=== PATIENT | female | born 2000 | race Hispanic/Latino ===

== ENCOUNTER 2020-10-23 22:16 | Emergency (ER) | payer SELFPAY ==
[2020-10-24] MEDS ORDERED: METOCLOPRAMIDE 10 MG/2 ML INJ IV ONE (00:23)
[2020-10-24] MEDS ORDERED: SODIUM CHLORIDE 0.9% 1000 ML 1,000 ML IV ONE (00:23)
--- NOTE | 2020-10-24 00:28 | Event Note ---
ED Screening Note Date of service: 10/24/20 Time: 00:25 ED Screening Note: Patient brought in for nausea and vomiting. Patient states that she is currently at a detox program at [facility]. She is currently in the detox program for Percocet and Xanax. She states that she has been having nausea and vomiting since she entered the program. They have been giving her Zofran IM but it has not been helping and so she was sent here for better control of her nausea and vomiting. In addition to the vomiting she has been having diffuse abdominal pain and intermittent diarrhea. She is currently on her menstrual cycle. This initial assessment/diagnostic orders/clinical plan/treatment(s) is/are subject to change based on patients health status, clinical progression and re- assessment by fellow clinical providers in the ED. Further treatment and workup at subsequent clinical providers discretion. Patient/guardian urged not to elope from the ED as their condition may be serious if not clinically assessed and managed. Initial orders include: CBC, CMP, urinalysis, hCG, IV fluids
[2020-10-24 00:56] LABS: Basophils % (Auto) 0.4 % (0.0-1.8); Eosinophils # (Auto) 0.1 K/mm3 (0.0-0.4); Eosinophils % (Auto) 0.7 % (0.0-4.3); Hematocrit 38.3 % (30.3-42.9); Hemoglobin 12.6 gm/dl (10.1-14.3); Lymphocytes # (Auto) 1.9 K/mm3 (1.2-5.4); Mean Corpuscular HGB Conc 33 % (30-34); Mean Corpuscular Volume 86 fl (79-97); Monocytes # (Auto) 0.6 K/mm3 (0.0-0.8); Monocytes % (Auto) 7.3 % (0.0-7.3); Platelet Count 239 K/mm3 (140-440); Red Blood Count 4.44 M/mm3 (3.65-5.03); Red Cell Distribution Width 16.3 % (13.2-15.2)
[2020-10-24 01:03] LABS: Alanine Aminotransferase 7 units/L (7-56); Albumin 4.6 g/dL (3.9-5); Blood Urea Nitrogen 6 mg/dL (7-17); Calcium 9.7 mg/dL (8.4-10.2); Hemolysis Index 5
[2020-10-24 01:05] LABS: BUN/Creatinine Ratio 15
--- NOTE | 2020-10-24 01:13 | Emergency Department Report ---
ED Abdominal Pain HPI - General Chief Complaint: Abdominal Pain Stated Complaint: NAUSEA PUI?: No Time Seen by Provider: 10/24/20 00:55 Source: patient Mode of arrival: Ambulatory Limitations: No Limitations - History of Present Illness Initial Comments: Patient is a 20-year-old female that presents emergency room with complaints of nausea vomiting and abdominal pain. Patient states her symptoms been going on for 2 days. Patient states she is currently in a detox for rehab from Xanax and Percocets. Patient states she is actively withdrawing. Patient states that she is receiving Ativan and Zofran at [facility]. Patient states is not helping. Patient states they are using Ativan for her Xanax withdrawal. Patient states she is not been able to hold anything down for at least 2 to 3 days. Patient states she cannot even tolerate ice chips. Patient states her abdominal pain is a 10 out of 10. Patient states that generalized pain. Patient states the pain is better with rest and worse with movement. Patient states the pain is also worse with vomiting. Patient states she was seen in another hospital yesterday was given fluids and Zofran sent back to rehab. Patient also complained of near syncope. Patient states she did not lose consciousness. Patient states she just felt lightheaded. Patient denies recent travel. Patient denies recent international travel. Patient denies exposure to the novel coronavirus. Patient denies sick contacts. Patient denies fever and chills. Patient denies cough. Patient denies diarrhea. Patient denies coming in contact with anybody with symptoms of the novel coronavirus. MD Complaint: abdominal pain -: Sudden, days(s) Location: diffuse Radiation: none Migration to: no migration Severity: severe Severity scale (0 -10): 10 Quality: stabbing Consistency: constant Improves With: rest Worsens With: vomiting, movement Associated Symptoms: nausea, vomiting. denies: diarrhea, fever, chills, constipation, dysuria, hematemesis, hematochezia, melena, hematuria, syncope - Related Data LMP (females 10-50): last week Previous Rx's Medication Instructions Recorded Last Taken Type Promethazine [Phenergan] 25 mg KS Q6HR PRN #20 supp.rect 10/24/20 Unknown Rx Allergies Allergy/AdvReac Type Severity Reaction Status Date / Time No Known Allergies Allergy Unverified 10/23/20 22:50 ED Review of Systems ROS: Stated complaint: NAUSEA Other details as noted in HPI Constitutional: denies: chills, fever Eyes: denies: eye pain, eye discharge, vision change ENT: denies: ear pain, throat pain Respiratory: denies: cough, shortness of breath, wheezing Cardiovascular: denies: chest pain, palpitations Endocrine: no symptoms reported Gastrointestinal: abdominal pain, nausea, vomiting. denies: diarrhea Genitourinary: denies: urgency, dysuria, discharge Musculoskeletal: denies: back pain, joint swelling, arthralgia Skin: denies: rash, lesions Neurological: denies: headache, weakness, paresthesias Psychiatric: denies: anxiety, depression Hematological/Lymphatic: denies: easy bleeding, easy bruising ED Past Medical Hx - Past Medical History Previous Medical History?: Yes Additional medical history: Substance abuse - Surgical History Past Surgical History?: Yes Additional Surgical History: tonsils and adenoids - Family History Family history: no significant - Social History Smoking Status: Never Smoker Substance Use Type: Marijuana, Other - Medications Home Medications: Home Medications Medication Instructions Recorded Confirmed Last Taken Type Promethazine [Phenergan] 25 mg KS Q6HR PRN #20 supp.rect 10/24/20 Unknown Rx ED Physical Exam - General Limitations: No Limitations General appearance: alert, in no apparent distress - Head Head exam: Present: atraumatic, normocephalic - Eye Eye exam: Present: normal appearance, PERRL Pupils: Present: normal accommodation - ENT ENT exam: Present: mucous membranes dry - Neck Neck exam: Present: normal inspection - Respiratory Respiratory exam: Present: normal lung sounds bilaterally. Absent: respiratory distress - Cardiovascular Cardiovascular Exam: Present: regular rate, normal rhythm. Absent: systolic murmur, diastolic murmur, rubs, gallop - GI/Abdominal GI/Abdominal exam: Present: soft, normal bowel sounds - Extremities Exam Extremities exam: Present: normal inspection - Back Exam Back exam: Present: normal inspection - Neurological Exam Neurological exam: Present: alert, oriented X3, CN II-XII intact, normal gait - Psychiatric Psychiatric exam: Present: normal affect, normal mood - Skin Skin exam: Present: warm, dry, intact, normal color. Absent: rash ED Course Vital Signs 10/23/20 22:52 Temperature 98.5 F Pulse Rate 99 H Respiratory 17 Rate Blood Pressure 133/80 O2 Sat by Pulse 100 Oximetry - Reevaluation(s) Reevaluation #1: She states her nausea has resolved. Patient is states she still having abdom inal pain. 10/24/20 02:31 Reevaluation #2: Patient states her nausea is better. Patient states she still having better. Patient CT is pending. 10/24/20 04:31 Reevaluation #3: Patient states feeling better. Patient tolerated ice chips. Patient requested a dose of her Phenergan suppository prior to leaving so that she does not get nauseated before she gets back to [facility]. Patient will be given a Phenergan suppository KS. I discussed all results and clinical findings with patient. I discussed plan of care with patient. Patient agrees with plan of care. Patient is stable for discharge. Patient will be discharged home. Patient given discharge instructions. Patient voiced understanding of discharge instructions. 10/24/20 05:04 ED Medical Decision Making - Lab Data Result diagrams: 10/24/20 00:26 10/24/20 00:26 - Radiology Data Radiology results: report reviewed CT ABDOMEN AND PELVIS WITH CONTRAST INDICATION / CLINICAL INFORMATION: n/v. abd pain. TECHNIQUE: Axial CT images were obtained through the abdomen and pelvis after 100 mL Omnipaque [address] scans at this location are performed using CT dose reduction for ALARA by means of automated exposure control. COMPARISON: None available. FINDINGS: LOWER CHEST: Mild left lung base atelectasis. LIVER: No significant abnormality. GALLBLADDER: Subtle, noncalcified densities in the gallbladder could represent sludge balls versus noncalcified stones. No wall thickening or inflammation. BILE DUCTS: Mildly prominent common bile duct measuring 9 mm in diameter with possible small noncalcified stones. PANCREAS: No significant abnormality. SPLEEN: No significant abnormality. ADRENALS: No significant abnormality. RIGHT KIDNEY / URETER: No significant abnormality. LEFT KIDNEY / URETER: No significant abnormality. STOMACH / SMALL BOWEL: No significant abnormality. COLON: No significant abnormality. APPENDIX: No significant abnormality. PERITONEUM: No free fluid. No free air. No fluid collection. LYMPH NODES: No significant adenopathy. AORTA / ARTERIES: No significant abnormality. IVC / VEINS: No significant abnormality. URINARY BLADDER: No significant abnormality. REPRODUCTIVE ORGANS: Tampon in vagina. No acute abnormality. ADDITIONAL FINDINGS: None. SKELETAL SYSTEM: No significant abnormality. IMPRESSION: 1. No inflammatory process or bowel obstruction. 2. Possible noncalcified stones in the gallbladder and common bile duct. No inflammation. - Medical Decision Making Patient is a 20-year-old female that presents emergency room with complaints of 2 to 3 days of abdominal pain and intractable nausea vomiting. Patient is currently in a detox for detoxing from Xanax and Percocets. Patient's been receiving Zofran and Ativan at the detox center with no help. Patient was seen at another hospital and evaluated and discharged back to rehab. Patient then came here for evaluation. Patient had labs which were essentially unremarkable. Patient had findings diversional therapist's assistant with dehydration. Patient given fluids and Reglan. Patient responded well to treatment. Patient tolerated a p.o. challenge in the ER. Patient tolerated ice chips. Patient did not have nausea after she was given Reglan. Patient had a CT to rule out an obstruction and the CT was negative for acute findings and was negative for an obstruction. Patient is stable to return to her rehab center and continue her rehabilitation. Magalis nguyễn will be given a Phenergan suppository prescription. Patient to continue Ativan and Zofran for detox center. Patient given discharge instructions. Patient voiced understanding of discharge instructions. Patient stable for discharge. - Differential Diagnosis Nausea, vomiting, withdrawal, abdominal pain, dehydration. Critical care attestation.: If time is entered above; I have spent that time in minutes in the direct care of this critically ill patient, excluding procedure time. ED Disposition Clinical Impression: Withdrawal from opioids, Near syncope, Dehydration Nausea & vomiting Qualifiers: Vomiting type: unspecified Vomiting Intractability: non-intractable Qualified Code(s): R11.2 - Nausea with vomiting, unspecified Abdominal pain Qualifiers: Abdominal location: generalized Qualified Code(s): R10.84 - Generalized abdominal pain Disposition: DC-01 TO HOME OR SELFCARE Is pt being admited?: No Does the pt Need Aspirin: No Condition: Stable Instructions: Near-Syncope, Opioid Withdrawal Treatment, Nausea and Vomiting, Adult, [id number]-os-Zmac, Opioid Withdrawal, Opioid Use Disorder, Abdominal Pain (ED) Additional Instructions: Patient to be discharged from the ER and go directly back to [facility] to continue her rehabilitation. Patient to follow-up with primary care in 2 to 3 days. Patient to rest. Patient to increase water. Patient to take Tylenol or ibuprofen as needed for pain. Patient to take meds as directed. Patient to return to the ER if condition worsens, changes or new symptoms arise. Prescriptions: Promethazine [Phenergan] 25 mg KS Q6HR PRN #20 supp.rect PRN Reason: Nausea And Vomiting Referrals: MELISSA BERRIOS MD [Primary Care Provider] - 2-3 Days Time of Disposition: 05:10
[2020-10-24 03:43] LABS: Bacteria,Urine 1+ /HPF (Negative); Bilirubin,Urine NEG (Negative); Blood,Urine NEG (Negative); Color,Urine Yellow (Yellow); HCG Qualitative,Urine Negative (Negative); Mucus,Urine FEW /HPF
--- NOTE | 2020-10-24 04:44 | Cat Scan Report ---
CT ABDOMEN AND PELVIS WITH CONTRAST INDICATION / CLINICAL INFORMATION: n/v. abd pain. TECHNIQUE: Axial CT images were obtained through the abdomen and pelvis after 100 mL Omnipaque [address] scans at this location are performed using CT dose reduction for ALARA by means of automated exposure control. COMPARISON: None available. FINDINGS: LOWER CHEST: Mild left lung base atelectasis. LIVER: No significant abnormality. GALLBLADDER: Subtle, noncalcified densities in the gallbladder could represent sludge balls versus no ncalcified stones. No wall thickening or inflammation. BILE DUCTS: Mildly prominent common bile duct measuring 9 mm in diameter with possible small noncalci fied stones. PANCREAS: No significant abnormality. SPLEEN: No significant abnormality. ADRENALS: No significant abnormality. RIGHT KIDNEY / URETER: No significant abnormality. LEFT KIDNEY / URETER: No significant abnormality. STOMACH / SMALL BOWEL: No significant abnormality. COLON: No significant abnormality. APPENDIX: No significant abnormality. PERITONEUM: No free fluid. No free air. No fluid collection. LYMPH NODES: No significant adenopathy. AORTA / ARTERIES: No significant abnormality. IVC / VEINS: No significant abnormality. URINARY BLADDER: No significant abnormality. REPRODUCTIVE ORGANS: Tampon in vagina. No acute abnormality. ADDITIONAL FINDINGS: None. SKELETAL SYSTEM: No significant abnormality. IMPRESSION: 1. No inflammatory process or bowel obstruction. 2. Possible noncalcified stones in the gallbladder and common bile duct. No inflammation. Signer Name: Odette Aguilera MD Signed: 10/24/2020 4:40 AM Workstation Name: [id number]
[2020-10-24] MEDS ORDERED: PROMETHAZINE 25 MG RECT SUPP PR ONE (05:22)
[2020-10-24 05:39] VITALS: BP 116/78
== END 2020-10-24 05:55 | disposition home or self-care (01) ==
LOC: ED 22:16
DX: E86.0 Dehydration (principal); R55 Syncope and collapse; F11.23 Opioid dependence with withdrawal; F12.90 Cannabis use, unspecified, uncomplicated; R11.2 Nausea with vomiting, unspecified; R10.9 Unspecified abdominal pain; Z79.899 Other long term (current) drug therapy; Z98.890 Other specified postprocedural states
CPT/HCPCS: 36415; 74177; 80053; 81001; 81025; 83690; 83735; 85025; 96361; 96374; 99284; J2765; J7030; Q9967

== ENCOUNTER 2020-10-30 23:34 | Emergency (ER) | payer SELFPAY ==
[2020-10-31] MEDS ORDERED: ONDANSETRON 4 MG/2 ML INJ IV PRN (00:18)
[2020-10-31] MEDS ORDERED: PANTOPRAZOLE 40 MG INJ IV ONE (00:18)
[2020-10-31] MEDS ORDERED: KETOROLAC 30 MG/1 ML INJ IV ONE (00:18)
[2020-10-31] MEDS ORDERED: SODIUM CHLORIDE 0.9% 1000 ML 1,000 ML IV ONE (00:18)
--- NOTE | 2020-10-31 00:27 | Emergency Department Report ---
ED Abdominal Pain HPI - General Chief Complaint: Rectal Pain Stated Complaint: RECTAL BLEEDING/ANAL PAIN PUI?: No Time Seen by Provider: 10/31/20 00:01 Source: patient, EMS Mode of arrival: Stretcher Limitations: No Limitations - History of Present Illness Initial Comments: Chief complaint: "I have stomach problems." HPI: This is a 20-year-old female with history of polysubstance abuse including opiate dependence, marijuana and Xanax abuse who presents with abdominal pain. Patient states that she has history of GERD and "GI issues". She was evaluated at [facility] today. She stated CT of the abdomen did not reveal anything "wrong". She has nonspecific pain. She is unable to localize the pain. She states that she has abdominal pain on a frequent basis. She has not been diagnosed with IBS. She lives in [facility]. She has resided an inpatient rehabilitation facility here in [place] for the past 2 weeks. She is receiving Seroquel for mood stabilization. She states that her "drug of choice" is marijuana. She "self medicates" for anxiety with Xanax. She also "self medicates" for pain with Percocet 10 mg tablets. She denies suicidal homicidal ideation. Her rehabilitation facility is a 24-hour residential program. She denies rectal pain. She denies vaginal rectal bleeding. MD Complaint: abdominal pain -: days(s) (Several days) Location: diffuse Radiation: none Severity scale (0 -10): 10 Quality: cramping, dull Consistency: constant Improves With: nothing Worsens With: nothing Context: other (Opioid dependence,) Associated Symptoms: other (Initially informed triage nurse rectal bleeding rectal pain she denies these symptoms) - Related Data Previous Rx's Medication Instructions Recorded Last Taken Type Promethazine [Phenergan] 25 mg GA Q6HR PRN #20 supp.rect 10/24/20 Unknown Rx Ondansetron [Zofran Odt] 4 mg PO Q8HR PRN #10 tab.rapdis 10/31/20 Unknown Rx Allergies Allergy/AdvReac Type Severity Reaction Status Date / Time No Known Allergies Allergy Unverified 10/23/20 22:50 ED Review of Systems ROS: Stated complaint: RECTAL BLEEDING/ANAL PAIN Other details as noted in HPI Comment: All other systems reviewed and negative Constitutional: denies: fever, malaise Respiratory: denies: cough, shortness of breath Gastrointestinal: abdominal pain. denies: nausea, vomiting ED Past Medical Hx - Past Medical History Previous Medical History?: Yes Additional medical history: Opioid dependence, polysubstance abuse including marijuana and benzodiazepine - Surgical History Past Surgical History?: Yes Additional Surgical History: tonsils and adenoids - Social History Smoking Status: Current Some Day Smoker Substance Use Type: Marijuana, Prescribed, Tranquilizers - Medications Home Medications: Home Medications Medication Instructions Recorded Confirmed Last Taken Type Promethazine [Phenergan] 25 mg GA Q6HR PRN #20 supp.rect 10/24/20 Unknown Rx Ondansetron [Zofran Odt] 4 mg PO Q8HR PRN #10 tab.rapdis 10/31/20 Unknown Rx ED Physical Exam - General Limitations: No Limitations General appearance: alert, in no apparent distress, other (Multiple track clark on upper extremities) - Head Head exam: Present: atraumatic, normocephalic - Eye Eye exam: Present: normal appearance - ENT ENT exam: Present: mucous membranes moist - Neck Neck exam: Present: normal inspection, full ROM - Respiratory Respiratory exam: Present: normal lung sounds bilaterally. Absent: respiratory distress, wheezes, rales, rhonchi - Cardiovascular Cardiovascular Exam: Present: regular rate, normal rhythm, normal heart sounds. Absent: systolic murmur, diastolic murmur, rubs, gallop - GI/Abdominal GI/Abdominal exam: Present: soft, normal bowel sounds. Absent: distended, tenderness, guarding, rebound - Extremities Exam Extremities exam: Present: normal inspection - Neurological Exam Neurological exam: Present: alert, oriented X3 - Psychiatric Psychiatric exam: Present: depressed, flat affect - Skin Skin exam: Present: warm, dry, intact, normal color. Absent: rash ED Course Vital Signs 10/30/20 10/31/20 10/31/20 23:46 00:15 00:30 Blood Pressure 110/69 120/75 109/53 O2 Sat by Pulse 97 100 97 Oximetry ED Medical Decision Making - Medical Decision Making 1. Abdominal pain: Suspect opiate withdrawal as cause. Patient treated supportively with IV fluids, ketorolac, Protonix, Zofran. Differential diagnosis includes cannabinoid hyperemesis syndrome, irritable bowel syndrome. I do not suspect acute inflammatory or obstructive process such as SBO, PID, appendicitis. Patient had recent work-up today at outside hospital. I did not feel that repeat testing was necessary at this time. She did not have concerning localization of her pain to indicate ectopic or any other emergent condition. 2. Drug-seeking behavior: Patient gave differing accounts regarding her history of present illness. She informed triage nurse that she had rectal pain and rectal bleeding. However she denies rectal pain and bleeding to me she states that she has abdominal pain and "GI issues". She initially stated that she did not have any medical conditions and at the end of the history she stated that she has had "GI issues" for a long time. Patient was discharged to self-care after receiving the above listed treatment. Prescription for Zofran provided Critical care attestation.: If time is entered above; I have spent that time in minutes in the direct care of this critically ill patient, excluding procedure time. ED Disposition Clinical Impression: Marijuana dependence, Abdominal pain, Polysubstance abuse Disposition: - TO HOME OR SELFCARE Is pt being admited?: No Does the pt Need Aspirin: No Condition: Stable Instructions: Abdominal Pain, Adult, [id number] Prescriptions: Ondansetron [Zofran Odt] 4 mg PO Q8HR PRN #10 tab.rapdis PRN Reason: Nausea Referrals: EMMA WHITE MD [Staff Physician] - 3-5 Days
[2020-10-31 02:54] VITALS: BP 122/74
== END 2020-10-31 02:35 | disposition home or self-care (01) ==
LOC: ED 23:34
DX: F12.20 Cannabis dependence, uncomplicated (principal); F19.10 Other psychoactive substance abuse, uncomplicated; F17.200 Nicotine dependence, unspecified, uncomplicated; Z79.899 Other long term (current) drug therapy
CPT/HCPCS: 96361; 96374; 96375; 99283; C9113; J1885; J2405; J7030